=== PATIENT | female | born 1950 | race Caucasian/White ===

== ENCOUNTER 2020-10-21 18:05 | Emergency (ER) | payer MEDICARE, BC ==
[2020-10-21] MEDS ORDERED: Acetaminophen/HYDROcodone 325-5 MG Tab PO ONE (18:06)
--- NOTE | 2020-10-21 18:46 | EDM.PDOC ---
ED HPI GENERAL MEDICAL PROBLEM - General Chief Complaint: Upper Extremity Injury/Pain Stated Complaint: BROKEN RIGHT WRIST Time Seen by Provider: 10/21/20 18:43 Source of Information: Reports: Patient History Limitations: Reports: No Limitations - History of Present Illness INITIAL COMMENTS - FREE TEXT/NARRATIVE: Patient slipped on ice and fell on right outstretched hand. Complains of right wrist pain. She is right hand dominant. Patient also landed on her right knee and has mild pain there, but is able to ambulate without pain. No head or neck injury. Denies numbness or tingling. Duration: Hour(s): (1) Location: Reports: Upper Extremity, Right Quality: Reports: Ache Right Wrist Pain Score (Numeric/FACES): 7 - Related Data Allergies Allergy/AdvReac Type Severity Reaction Status Date / Time No Known Allergies Allergy Verified 10/21/20 18:20 Home Meds: Home Meds RX: Acyclovir [Zovirax] 400 mg PO ASDIRECTED PRN 06/05/14 [History] RX: Atenolol [Tenormin] 50 mg PO DAILY 06/05/14 [History] RX: Calcium Carbonate [Calcium] 1,500 mg PO DAILY 06/05/14 [History] RX: Clobetasol [Temovate 0.05%] 1 applic TOP ASDIRECTED PRN 06/05/14 [History] RX: Clotrimazole [Mycelex] 1 applic TOP ASDIRECTED 06/05/14 [History] RX: Fluticasone Propionate [Flonase] 2 spray NS DAILY 06/05/14 [History] RX: Ketoconazole [Nizoral 2% Shampoo] 1 applic TOP ASDIRECTED PRN 06/05/14 [History] RX: Multivitamin with Minerals [Multiple Vitamin] 1 tab PO DAILY 06/05/14 [History] RX: Sertraline [Zoloft] 200 mg PO DAILY 06/05/14 [History] RX: mycophenolate mofetiL [Cellcept] 1,000 mg PO BID 06/05/14 [History] RX: predniSONE [Prednisone] 50 mg PO DAILY 06/06/14 [History] Past Medical History Neurological History: Reports: Migraines Psychiatric History: Reports: Depression - Past Surgical History GI Surgical History: Reports: Colonoscopy Musculoskeletal Surgical History: Reports: Knee Replacement Social & Family History - Family History Family Medical History: No Pertinent Family History - Tobacco Use Tobacco Use Status *Q: Never Tobacco User - Caffeine Use Caffeine Use: Reports: None - Recreational Drug Use Recreational Drug Use: No Review of Systems - Review of Systems Review Of Systems: Comprehensive ROS is negative, except as noted in HPI. ED EXAM, GENERAL - Physical Exam Exam: See Below Exam Limited By: No Limitations General Appearance: Alert, WD/WN, No Apparent Distress Head: Atraumatic, Normocephalic Neck: Full Range of Motion Respiratory/Chest: No Respiratory Distress Peripheral Pulses: 2+: Radial (R) Back Exam: Full Range of Motion Extremities: Other (tenderness and swelling to right wrist, no deformities) Neurological: Alert, Oriented, Normal Cognition, No Motor/Sensory Deficits Psychiatric: Normal Affect, Normal Mood Skin Exam: Warm, Dry, Intact ED TRAUMA EXTREMITY PROCEDURES - Splinting Right Upper Extremity Splint Site: right short arm Pre-Procedure NV Status: Normal Post-Procedure NV Status: Normal Splint Material: Other (Orthoglass) Splint Design: Volar Applied & Form Fitted By: Provider Provider Post-Splint Application NV Check: NV Status Normal, Good Position Complications: No Course - Vital Signs Last Recorded V/S: Last Vital Signs Temp 36.3 C 10/21/20 18:14 Pulse 62 10/21/20 18:14 Resp 16 10/21/20 18:14 BP 152/74 H 10/21/20 18:14 Pulse Ox 94 L 10/21/20 18:14 - Orders/Labs/Meds Orders: Active Orders 24 hr Category Date Time Status Wrist Comp Min 3V Rt [CR] Stat Exams 10/21/20 18:13 Taken - Radiology Interpretation Free Text/Narrative:: Right wrist xray: Mildly displaced fracture of right distal radius. (Ed provider interpretation) Departure - Departure Time of Disposition: 18:46 Disposition: Home, Self-Care 01 Condition: Good Clinical Impression: Distal radius fracture, right Qualifiers: Encounter type: initial encounter Fracture type: closed Fracture morphology: unspecified fracture morphology Qualified Code(s): S52.501A - Unspecified fracture of the lower end of right radius, initial encounter for closed fracture - Discharge Information *PRESCRIPTION DRUG MONITORING PROGRAM REVIEWED*: Yes *COPY OF PRESCRIPTION DRUG MONITORING REPORT IN PATIENT ANGELIQUE: No Instructions: Cast or Splint Care, Adult, [id number], Wrist Fracture Treated With Immobilization, [id number] Referrals: Venkat Lopez MD [Ordering Only Provider] - 3 Days Additional Instructions: Ice the area affected. Take Ibuprofen as needed. You may take [place] for breakthrough pain. Follow up with [facility] in 3 days. Sepsis Event Note (ED) - Evaluation Sepsis Screening Result: No Definite Risk - Focused Exam Vital Signs: Vital Signs Temp Pulse Resp BP Pulse Ox 10/21/20 18:14 36.3 C 62 16 152/74 H 94 L - My Orders Last 24 Hours: My Active Orders 10/21/20 18:13 Wrist Comp Min 3V Rt [CR] Stat - Assessment/Plan Last 24 Hours: My Active Orders 10/21/20 18:13 Wrist Comp Min 3V Rt [CR] Stat
--- NOTE | 2020-10-21 19:07 | CR ---
INDICATION: Fall. Injury. RIGHT WRIST: Three views of the right wrist were obtained 10/21/20 - no comparisons. Colles' fracture of the distal radial metaphysis is noted and is comminuted with dorsal angulation of significant degree of the radial joint surface. The ulnar styloid was intact. Minimal degenerative changes are noted at the 1st metacarpocarpal joint, very minimal at the navicular multangular joints. IMPRESSION: Distal radial fracture with significant dorsal angulation of the radial joint surface - deformity. Fracture line extends into the joint surface. MTDD
== END 2020-10-21 18:59 | disposition home or self-care (01) ==
LOC: FB.ED 18:05
DX: S52.501A Unspecified fracture of the lower end of right radius, initial encounter for closed fracture (principal); Z79.899 Other long term (current) drug therapy; W00.0XXA Fall on same level due to ice and snow, initial encounter
CPT/HCPCS: 29125; 73110; 99283; A9270

== ENCOUNTER 2023-09-01 15:59 | Emergency (ER) | payer MEDICARE, BC ==
[2023-09-01] MEDS ORDERED: Ondansetron 4 MG Tab.DIS PO ONE (16:00)
[2023-09-01] MEDS ORDERED: Sodium Chloride 0.9% 1,000 ML IV ONE ×2 (16:19→16:35)
[2023-09-01 16:27] LABS: BASOPHILS PERCENT AUTO 0.5 % (0.2-1.5); EOSINOPHILS PERCENT AUTO 0.6 % (0.6-8.1); HEMATOCRIT 49.7 % (34.2-48.2); HEMOGLOBIN 17.1 g/dL (11.4-15.5); LYMPHOCYTES ABSOLUTE AUTO 1.8 x10-3/uL (1.0-4.4); LYMPHOCYTES PERCENT AUTO 24.9 % (18.4-52.1); MEAN CORPUSCULAR HEMOGLOBIN 30.6 pg (23.9-33.9); MEAN CORPUSCULAR HGB CONC 34.4 g/dL (31.9-34.8); MEAN PLATELET VOLUME 9.5 fL (7.1-12.4); MONOCYTES ABSOLUTE AUTO 0.6 x10-3/uL (0.3-1.0); MONOCYTES PERCENT AUTO 8.4 % (4.4-15.7); NEUTROPHILS ABSOLUTE AUTO 4.7 x10-3/uL (1.5-6.3); NEUTROPHILS PERCENT AUTO 65.6 % (30.8-76.2); PLATELET COUNT,PLT 221 x10(3)uL (151-488); RED BLOOD CELL COUNT 5.58 x10(6)uL (3.60-5.20); RED CELL DISTRIBUTION WIDTH 13.4 % (12.3-16.5); WHITE BLOOD CELL COUNT,WBC 7.2 x10-3/uL (3.0-10.3)
[2023-09-01 16:34] LABS: BLOOD UREA NITROGEN,BUN 27 mg/dL (7-18); BUN/CREATININE RATIO 20.8 (9-20); CARBON DIOXIDE,CO2 31 mmol/L (21-32); CHLORIDE,CL 94 mmol/L (100-110); CREATININE 1.3 mg/dL (0.55-1.02); ESTIMATED GFR 44 mL/min (>60); GLUCOSE RANDOM 160 mg/dL (80-116); POTASSIUM,K 3.4 mmol/L (3.5-5.3); SODIUM,NA 134 mmol/L (135-145)
[2023-09-01 16:39] LABS: A/G RATIO 1.1; ALANINE AMINOTRANSFERASE,ALT 27 U/L (12-36); ALBUMIN 4.2 g/dL (3.2-4.6); ALKALINE PHOSPHATASE 85 IU/L (56-112); ASPARTATE AMNIOTRANSFERASE,AST 27 IU/L (5-25); PROTEIN TOTAL,TP 7.9 g/dL (6.0-8.0)
[2023-09-01 16:55] LABS: INFLUENZA A NAA POSITIVE (NEGATIVE); INFLUENZA B NAA NEGATIVE (NEGATIVE); RESPIRATORY SYNCYTIAL VIR NAA NEGATIVE (NEGATIVE)
[2023-09-01 16:56] LABS: CORONAVIRUS COVID-19 NAA NEGATIVE (NEGATIVE)
[2023-09-01] MEDS ORDERED: Potassium Chloride 20 MEQ Tab.ER PO ONE (17:42)
== END 2023-09-01 18:00 | disposition home or self-care (01) ==
LOC: FB.ED 15:59
DX: J10.1 Influenza due to other identified influenza virus with other respiratory manifestations (principal); E86.0 Dehydration; E87.6 Hypokalemia; E11.65 Type 2 diabetes mellitus with hyperglycemia; R79.89 Other specified abnormal findings of blood chemistry; Z79.84 Long term (current) use of oral hypoglycemic drugs; I10 Essential (primary) hypertension; Z79.899 Other long term (current) drug therapy
CPT/HCPCS: 0241U; 36415; 80053; 85025; 86140; 96360; 99284; A9270; J7030; Q0162

== ENCOUNTER 2023-09-06 22:42 | Emergency (ER) | payer MEDICARE, BC ==
[2023-09-06] MEDS ORDERED: Sodium Chloride 0.9% 10 ML Syringe FLUSH PRN (23:20)
[2023-09-06] MEDS ORDERED: Sodium Chloride 0.9% 1,000 ML IV ONE (23:20)
[2023-09-06 23:37] LABS: BASOPHILS PERCENT AUTO 0.5 % (0.2-1.5); EOSINOPHILS ABSOLUTE AUTO 0.1 x10-3/uL (0.0-0.8); EOSINOPHILS PERCENT AUTO 0.7 % (0.6-8.1); HEMATOCRIT 42.8 % (34.2-48.2); HEMOGLOBIN 14.8 g/dL (11.4-15.5); LYMPHOCYTES PERCENT AUTO 22.2 % (18.4-52.1); MEAN CORPUSCULAR HEMOGLOBIN 30.9 pg (23.9-33.9); MEAN CORPUSCULAR HGB CONC 34.6 g/dL (31.9-34.8); MEAN CORPUSCULAR VOLUME 89.3 fL (76.7-100.5); MEAN PLATELET VOLUME 10.5 fL (7.1-12.4); MONOCYTES ABSOLUTE AUTO 0.8 x10-3/uL (0.3-1.0); MONOCYTES PERCENT AUTO 8.6 % (4.4-15.7); NEUTROPHILS ABSOLUTE AUTO 6.1 x10-3/uL (1.5-6.3); PLATELET COUNT,PLT 241 x10(3)uL (151-488); RED BLOOD CELL COUNT 4.79 x10(6)uL (3.60-5.20); RED CELL DISTRIBUTION WIDTH 13.2 % (12.3-16.5)
[2023-09-06 23:39] LABS: BLOOD UREA NITROGEN,BUN 16 mg/dL (7-18); BUN/CREATININE RATIO 11.4 (9-20); CALCIUM 10.2 mg/dL (8.6-10.2); CARBON DIOXIDE,CO2 30 mmol/L (21-32); CHLORIDE,CL 96 mmol/L (100-110); CREATININE 1.4 mg/dL (0.55-1.02); EST CRCL DRUG DOSING (CG) 33.16 mL/min; ESTIMATED GFR 40 mL/min (>60); GLUCOSE RANDOM 142 mg/dL (80-116); SODIUM,NA 136 mmol/L (135-145)
[2023-09-07] MEDS ORDERED: Potassium Chloride 20 MEQ Tab.ER PO ONE ×2 (00:53→00:54)
[2023-09-07] MEDS ORDERED: Meclizine 25 MG Tab PO ONE (00:56)
== END 2023-09-07 01:20 | disposition home or self-care (01) ==
LOC: FB.ED 22:42
DX: J10.1 Influenza due to other identified influenza virus with other respiratory manifestations (principal); E87.6 Hypokalemia; E86.0 Dehydration; I10 Essential (primary) hypertension; E78.00 Pure hypercholesterolemia, unspecified; K21.9 Gastro-esophageal reflux disease without esophagitis; E11.9 Type 2 diabetes mellitus without complications; E66.9 Obesity, unspecified; Z79.84 Long term (current) use of oral hypoglycemic drugs; Z79.899 Other long term (current) drug therapy; Z68.36 Body mass index [BMI] 36.0-36.9, adult
CPT/HCPCS: 36415; 71045; 80048; 85025; 96360; 99283; 99283-25; A9270-GY; J3490; J7030